=== PATIENT | male | born 1975 | race African-American/Black ===

== ENCOUNTER 2021-09-24 11:29 | Inpatient (IN) | payer OTHER ==
[2021-09-24] MEDS ORDERED: P-EPHED 60MG/TRIPROLIDI 2.5MG TABLET PO PRN (11:53)
[2021-09-24] MEDS ORDERED: MAGNESIUM HYDROX 2400MG/30ML ORAL SUSPENSION 30 ML CUP PO PRN (11:53)
[2021-09-24] MEDS ORDERED: MAG HYDROX/AL HYDROX/SIMETH 30 ML UNIT-DOSE CUP PO PRN (11:53)
[2021-09-24] MEDS ORDERED: guaiFENesin 200 MG/10 ML 10 ML UNIT-DOSE CUPS PO PRN (11:53)
[2021-09-24] MEDS ORDERED: LOPERAMIDE HCL 2 MG CAPSULE PO PRN (11:53)
[2021-09-24] MEDS ORDERED: MAGNESIUM CITRATE 300 ML BOTTLE PO PRN (11:53)
[2021-09-24] MEDS ORDERED: ACETAMINOPHEN 325 MG TABLET (FP) PO PRN (11:53)
[2021-09-24] MEDS ORDERED: IBUPROFEN 400 MG TABLET (FP) PO PRN (11:53)
[2021-09-24 12:14] VITALS: BMI 27.6
[2021-09-24] MEDS: PRENATAL VITAMINS W/ FOLIC ACID TABLET (FP) PO SCH (13:49)
[2021-09-24] MEDS: NICOTINE 7 MG/24 HOURS TOPICAL PATCH TD SCH (13:55)
[2021-09-24] MEDS ORDERED: hydrOXYzine PAMOATE 25 MG CAPSULE (FP) PO SCH (14:00)
[2021-09-24] MEDS ORDERED: PT OWN MED DRAWER 7, Y5N ONE ×3 (15:07→21:52)
[2021-09-24 16:51] LABS: HEMATOCRIT 42.1 % (35.4-49); HEMOGLOBIN 14.3 GM/dL (11.7-16.9); MCH 33.6 pg (25.7-33.7); MCHC 33.9 g/dl (32.0-35.9); MEAN CELL VOLUME 98.9 fl (80-96); MEAN PLT VOLUME 8.4 fl (7.5-11.1); PLATELET COUNT 251 10^3/uL (134-434); RBC 4.25 M/mm3 (4.00-5.60); RDW 13.8 % (11.9-15.9); WHITE BLOOD COUNT 4.4 K/mm3 (4.0-10.0)
[2021-09-24 16:57] LABS: ALBUMIN 3.2 g/dl (3.4-5.0); CALCIUM 9.6 mg/dL (8.5-10.1)
[2021-09-24 16:58] LABS: BLOOD UREA NITROGEN 5.3 mg/dL (7-18)
[2021-09-24 17:00] LABS: BILIRUBIN,TOTAL 0.4 mg/dL (0.2-1); TOT PROT 6.8 g/dl (6.4-8.2)
[2021-09-24 18:26] LABS: SYPHILIS W/ RPR CONF NON-REACTIVE (NONREACTIVE)
[2021-09-24] MEDS: hydrOXYzine PAMOATE 25 MG CAPSULE (FP) PO PRN (21:51)
[2021-09-24] MEDS: THIAMINE HCL 100 MG TABLET (FP) PO SCH (21:51)
[2021-09-24] MEDS: HALOPERIDOL 5 MG TABLET PO SCH (21:52)
[2021-09-24] MEDS: DIVALPROEX NA *ER* EXTEND REL 500 MG TABLET.SA (FP) PO SCH (21:54)
[2021-09-24] MEDS: MELATONIN 5 MG TABLETS PO SCH (21:54)
[2021-09-25] MEDS: metFORMIN HCL 500 MG TABLET (FP) PO SCH (06:58)
[2021-09-25] MEDS: ATORVASTATIN CA 80 MG TABLET (FP) PO SCH (09:30)
[2021-09-25] MEDS: ATENOLOL 25 MG TABLET (FP) PO SCH (09:30)
[2021-09-25] MEDS: PRENATAL VITAMINS W/ FOLIC ACID TABLET (FP) PO SCH (09:31)
[2021-09-25] MEDS: DIVALPROEX NA *ER* EXTEND REL 500 MG TABLET.SA (FP) PO SCH ×2 (09:31→21:52)
[2021-09-25] MEDS: NICOTINE 7 MG/24 HOURS TOPICAL PATCH TD SCH (09:32)
[2021-09-25] MEDS ORDERED: FLU VACC QS2021-22(6MOS UP)/PF 60 MCG/0.5 ML SYRINGE IM ONE (12:10)
[2021-09-25] MEDS ORDERED: PT OWN MED DRAWER 7, Y5N ONE ×2 (19:54→21:58)
[2021-09-25] MEDS: MELATONIN 5 MG TABLETS PO SCH (21:52)
[2021-09-25] MEDS: THIAMINE HCL 100 MG TABLET (FP) PO SCH (21:52)
[2021-09-25] MEDS: HALOPERIDOL 5 MG TABLET PO SCH (21:52)
[2021-09-26 00:29] LABS: URINE APPEARANCE CLEAR; URINE BILIRUBIN NEGATIVE (NEGATIVE); URINE COLOR YELLOW; URINE GLUCOSE (UA) NEGATIVE (NEGATIVE); URINE KETONE NEGATIVE (NEGATIVE); URINE LEUK ESTERASE NEGATIVE (NEGATIVE); URINE NITRITE NEGATIVE (NEGATIVE); URINE PROTEIN NEGATIVE (NEGATIVE); URINE UROBILINOGEN 0.2 mg/dL (0.2-1.0)
[2021-09-26] MEDS: metFORMIN HCL 500 MG TABLET (FP) PO SCH (06:33)
[2021-09-26] MEDS: NICOTINE 7 MG/24 HOURS TOPICAL PATCH TD SCH (09:14)
[2021-09-26] MEDS: DIVALPROEX NA *ER* EXTEND REL 500 MG TABLET.SA (FP) PO SCH ×2 (09:14→21:38)
[2021-09-26] MEDS: PRENATAL VITAMINS W/ FOLIC ACID TABLET (FP) PO SCH (09:14)
[2021-09-26] MEDS: ATORVASTATIN CA 80 MG TABLET (FP) PO SCH (09:14)
[2021-09-26] MEDS: ATENOLOL 25 MG TABLET (FP) PO SCH (09:14)
[2021-09-26] MEDS ORDERED: PT OWN MED DRAWER 7, Y5N ONE (20:22)
[2021-09-26] MEDS: HALOPERIDOL 5 MG TABLET PO SCH (21:36)
[2021-09-26] MEDS: THIAMINE HCL 100 MG TABLET (FP) PO SCH (21:36)
[2021-09-26] MEDS: MELATONIN 5 MG TABLETS PO SCH (23:27)
[2021-09-27] MEDS: metFORMIN HCL 500 MG TABLET (FP) PO SCH (06:29)
[2021-09-27] MEDS ORDERED: PT OWN MED DRAWER 7, Y5N ONE ×2 (08:32→20:03)
[2021-09-27] MEDS: PRENATAL VITAMINS W/ FOLIC ACID TABLET (FP) PO SCH (09:54)
[2021-09-27] MEDS: ATENOLOL 25 MG TABLET (FP) PO SCH (09:54)
[2021-09-27] MEDS: NICOTINE 7 MG/24 HOURS TOPICAL PATCH TD SCH (09:54)
[2021-09-27] MEDS: DIVALPROEX NA *ER* EXTEND REL 500 MG TABLET.SA (FP) PO SCH ×2 (09:54→21:31)
[2021-09-27] MEDS: ATORVASTATIN CA 80 MG TABLET (FP) PO SCH (09:54)
[2021-09-27] MEDS: THIAMINE HCL 100 MG TABLET (FP) PO SCH (21:31)
[2021-09-27] MEDS: HALOPERIDOL 5 MG TABLET PO SCH (21:31)
[2021-09-27] MEDS: MELATONIN 5 MG TABLETS PO SCH (21:32)
[2021-09-28] MEDS: metFORMIN HCL 500 MG TABLET (FP) PO SCH (06:56)
[2021-09-28] MEDS: PRENATAL VITAMINS W/ FOLIC ACID TABLET (FP) PO SCH (09:43)
[2021-09-28] MEDS: ATORVASTATIN CA 80 MG TABLET (FP) PO SCH (09:43)
[2021-09-28] MEDS: ATENOLOL 25 MG TABLET (FP) PO SCH (09:43)
[2021-09-28] MEDS: NICOTINE 7 MG/24 HOURS TOPICAL PATCH TD SCH (09:44)
[2021-09-28] MEDS: DIVALPROEX NA *ER* EXTEND REL 500 MG TABLET.SA (FP) PO SCH ×2 (09:44→22:00)
[2021-09-28] MEDS ORDERED: PT OWN MED DRAWER 7, Y5N ONE (19:39)
[2021-09-28] MEDS: THIAMINE HCL 100 MG TABLET (FP) PO SCH (22:00)
[2021-09-28] MEDS: HALOPERIDOL 5 MG TABLET PO SCH (22:00)
[2021-09-28] MEDS: MELATONIN 5 MG TABLETS PO SCH (22:00)
[2021-09-29] MEDS: metFORMIN HCL 500 MG TABLET (FP) PO SCH (06:46)
[2021-09-29] MEDS: ATORVASTATIN CA 80 MG TABLET (FP) PO SCH (10:21)
[2021-09-29] MEDS: ATENOLOL 25 MG TABLET (FP) PO SCH (10:21)
[2021-09-29] MEDS: NICOTINE 7 MG/24 HOURS TOPICAL PATCH TD SCH (10:22)
[2021-09-29] MEDS: DIVALPROEX NA *ER* EXTEND REL 500 MG TABLET.SA (FP) PO SCH ×2 (10:22→21:43)
[2021-09-29] MEDS: PRENATAL VITAMINS W/ FOLIC ACID TABLET (FP) PO SCH (10:23)
[2021-09-29] MEDS: THIAMINE HCL 100 MG TABLET (FP) PO SCH (21:43)
[2021-09-29] MEDS: HALOPERIDOL 5 MG TABLET PO SCH (21:43)
[2021-09-29] MEDS ORDERED: PT OWN MED DRAWER 7, Y5N ONE (21:47)
[2021-09-29] MEDS: MELATONIN 5 MG TABLETS PO SCH (22:30)
[2021-09-30] MEDS: metFORMIN HCL 500 MG TABLET (FP) PO SCH (07:00)
[2021-09-30] MEDS: ATENOLOL 25 MG TABLET (FP) PO SCH (09:33)
[2021-09-30] MEDS: DIVALPROEX NA *ER* EXTEND REL 500 MG TABLET.SA (FP) PO SCH ×2 (09:33→21:42)
[2021-09-30] MEDS: ATORVASTATIN CA 80 MG TABLET (FP) PO SCH (09:33)
[2021-09-30] MEDS: PRENATAL VITAMINS W/ FOLIC ACID TABLET (FP) PO SCH (09:34)
[2021-09-30] MEDS: NICOTINE 7 MG/24 HOURS TOPICAL PATCH TD SCH (09:34)
[2021-09-30] MEDS ORDERED: PT OWN MED DRAWER 7, Y5N ONE (20:31)
[2021-09-30] MEDS: THIAMINE HCL 100 MG TABLET (FP) PO SCH (21:42)
[2021-09-30] MEDS: HALOPERIDOL 5 MG TABLET PO SCH (21:42)
[2021-09-30] MEDS: MELATONIN 5 MG TABLETS PO SCH (21:42)
[2021-10-01] MEDS: metFORMIN HCL 500 MG TABLET (FP) PO SCH (06:24)
[2021-10-01] MEDS: DIVALPROEX NA *ER* EXTEND REL 500 MG TABLET.SA (FP) PO SCH ×2 (09:21→21:53)
[2021-10-01] MEDS: ATORVASTATIN CA 80 MG TABLET (FP) PO SCH (09:22)
[2021-10-01] MEDS: PRENATAL VITAMINS W/ FOLIC ACID TABLET (FP) PO SCH (09:22)
[2021-10-01] MEDS: ATENOLOL 25 MG TABLET (FP) PO SCH (09:22)
[2021-10-01] MEDS: NICOTINE 7 MG/24 HOURS TOPICAL PATCH TD SCH (09:23)
[2021-10-01] MEDS ORDERED: PT OWN MED DRAWER 7, Y5N ONE (19:10)
[2021-10-01] MEDS: hydrOXYzine PAMOATE 25 MG CAPSULE (FP) PO PRN (21:52)
[2021-10-01] MEDS: THIAMINE HCL 100 MG TABLET (FP) PO SCH (21:52)
[2021-10-01] MEDS: MELATONIN 5 MG TABLETS PO SCH (21:52)
[2021-10-01] MEDS: HALOPERIDOL 5 MG TABLET PO SCH (21:53)
[2021-10-02] MEDS: metFORMIN HCL 500 MG TABLET (FP) PO SCH (07:53)
[2021-10-02] MEDS: NICOTINE 7 MG/24 HOURS TOPICAL PATCH TD SCH (09:49)
[2021-10-02] MEDS: ATORVASTATIN CA 80 MG TABLET (FP) PO SCH (09:49)
[2021-10-02] MEDS: ATENOLOL 25 MG TABLET (FP) PO SCH (09:50)
[2021-10-02] MEDS: PRENATAL VITAMINS W/ FOLIC ACID TABLET (FP) PO SCH (09:50)
[2021-10-02] MEDS: DIVALPROEX NA *ER* EXTEND REL 500 MG TABLET.SA (FP) PO SCH ×2 (09:50→21:35)
[2021-10-02] MEDS ORDERED: PT OWN MED DRAWER 7, Y5N ONE (19:58)
[2021-10-02] MEDS: HALOPERIDOL 5 MG TABLET PO SCH (21:35)
[2021-10-02] MEDS: THIAMINE HCL 100 MG TABLET (FP) PO SCH (21:35)
[2021-10-02] MEDS: MELATONIN 5 MG TABLETS PO SCH (21:36)
[2021-10-03] MEDS: metFORMIN HCL 500 MG TABLET (FP) PO SCH (06:31)
[2021-10-03] MEDS: PRENATAL VITAMINS W/ FOLIC ACID TABLET (FP) PO SCH (09:39)
[2021-10-03] MEDS: ATORVASTATIN CA 80 MG TABLET (FP) PO SCH (09:39)
[2021-10-03] MEDS: NICOTINE 7 MG/24 HOURS TOPICAL PATCH TD SCH (09:39)
[2021-10-03] MEDS: ATENOLOL 25 MG TABLET (FP) PO SCH (09:39)
[2021-10-03] MEDS: DIVALPROEX NA *ER* EXTEND REL 500 MG TABLET.SA (FP) PO SCH ×2 (09:39→22:34)
[2021-10-03] MEDS ORDERED: PT OWN MED DRAWER 7, Y5N ONE ×2 (20:44→23:53)
[2021-10-03] MEDS: MELATONIN 5 MG TABLETS PO SCH (22:37)
[2021-10-03] MEDS: THIAMINE HCL 100 MG TABLET (FP) PO SCH (22:37)
[2021-10-03] MEDS: HALOPERIDOL 5 MG TABLET PO SCH (22:37)
[2021-10-04] MEDS: metFORMIN HCL 500 MG TABLET (FP) PO SCH (06:35)
[2021-10-04] MEDS ORDERED: PT OWN MED DRAWER 7, Y5N ONE ×2 (08:49→19:14)
[2021-10-04] MEDS: ATORVASTATIN CA 80 MG TABLET (FP) PO SCH (09:45)
[2021-10-04] MEDS: ATENOLOL 25 MG TABLET (FP) PO SCH (09:45)
[2021-10-04] MEDS: PRENATAL VITAMINS W/ FOLIC ACID TABLET (FP) PO SCH (09:45)
[2021-10-04] MEDS: NICOTINE 7 MG/24 HOURS TOPICAL PATCH TD SCH (09:45)
[2021-10-04] MEDS: DIVALPROEX NA *ER* EXTEND REL 500 MG TABLET.SA (FP) PO SCH ×2 (09:46→22:01)
[2021-10-04] MEDS: THIAMINE HCL 100 MG TABLET (FP) PO SCH (22:01)
[2021-10-04] MEDS: HALOPERIDOL 5 MG TABLET PO SCH (22:01)
[2021-10-04] MEDS: MELATONIN 5 MG TABLETS PO SCH (22:01)
[2021-10-05] MEDS: metFORMIN HCL 500 MG TABLET (FP) PO SCH (06:46)
[2021-10-05] MEDS ORDERED: PT OWN MED DRAWER 7, Y5N ONE ×2 (08:05→20:24)
[2021-10-05] MEDS: ATENOLOL 25 MG TABLET (FP) PO SCH (09:28)
[2021-10-05] MEDS: DIVALPROEX NA *ER* EXTEND REL 500 MG TABLET.SA (FP) PO SCH ×2 (09:28→21:36)
[2021-10-05] MEDS: ATORVASTATIN CA 80 MG TABLET (FP) PO SCH (09:28)
[2021-10-05] MEDS: PRENATAL VITAMINS W/ FOLIC ACID TABLET (FP) PO SCH (09:28)
[2021-10-05] MEDS: NICOTINE 7 MG/24 HOURS TOPICAL PATCH TD SCH (09:28)
[2021-10-05] MEDS: THIAMINE HCL 100 MG TABLET (FP) PO SCH (21:36)
[2021-10-05] MEDS: HALOPERIDOL 5 MG TABLET PO SCH (21:36)
[2021-10-05] MEDS: MELATONIN 5 MG TABLETS PO SCH (21:36)
[2021-10-06] MEDS: metFORMIN HCL 500 MG TABLET (FP) PO SCH (06:47)
[2021-10-06] MEDS: DIVALPROEX NA *ER* EXTEND REL 500 MG TABLET.SA (FP) PO SCH ×2 (09:12→21:32)
[2021-10-06] MEDS: ATORVASTATIN CA 80 MG TABLET (FP) PO SCH (09:12)
[2021-10-06] MEDS: ATENOLOL 25 MG TABLET (FP) PO SCH (09:12)
[2021-10-06] MEDS: PRENATAL VITAMINS W/ FOLIC ACID TABLET (FP) PO SCH (09:12)
[2021-10-06] MEDS: NICOTINE 7 MG/24 HOURS TOPICAL PATCH TD SCH (09:13)
[2021-10-06] MEDS ORDERED: PT OWN MED DRAWER 7, Y5N ONE (19:08)
[2021-10-06] MEDS: THIAMINE HCL 100 MG TABLET (FP) PO SCH (21:32)
[2021-10-06] MEDS: MELATONIN 5 MG TABLETS PO SCH (21:33)
[2021-10-06] MEDS: HALOPERIDOL 5 MG TABLET PO SCH (21:33)
[2021-10-06] MEDS: NICOTINE 10 MG CARTRIDGE (INHALER) IH PRN (21:33)
[2021-10-07] MEDS: metFORMIN HCL 500 MG TABLET (FP) PO SCH (06:46)
[2021-10-07] MEDS: ATENOLOL 25 MG TABLET (FP) PO SCH (10:08)
[2021-10-07] MEDS: ATORVASTATIN CA 80 MG TABLET (FP) PO SCH (10:08)
[2021-10-07] MEDS: DIVALPROEX NA *ER* EXTEND REL 500 MG TABLET.SA (FP) PO SCH ×2 (10:08→21:35)
[2021-10-07] MEDS: PRENATAL VITAMINS W/ FOLIC ACID TABLET (FP) PO SCH (10:09)
[2021-10-07] MEDS: NICOTINE 7 MG/24 HOURS TOPICAL PATCH TD SCH (10:09)
[2021-10-07] MEDS ORDERED: PT OWN MED DRAWER 7, Y5N ONE ×2 (10:29→19:33)
[2021-10-07] MEDS: NICOTINE 10 MG CARTRIDGE (INHALER) IH PRN (20:53)
[2021-10-07] MEDS: HALOPERIDOL 5 MG TABLET PO SCH (21:35)
[2021-10-07] MEDS: MELATONIN 5 MG TABLETS PO SCH (21:35)
[2021-10-07] MEDS: THIAMINE HCL 100 MG TABLET (FP) PO SCH (21:35)
[2021-10-08] MEDS: metFORMIN HCL 500 MG TABLET (FP) PO SCH (06:31)
[2021-10-08] MEDS ORDERED: PT OWN MED DRAWER 7, Y5N ONE ×2 (08:58→20:01)
[2021-10-08] MEDS: ATORVASTATIN CA 80 MG TABLET (FP) PO SCH (09:28)
[2021-10-08] MEDS: PRENATAL VITAMINS W/ FOLIC ACID TABLET (FP) PO SCH (09:29)
[2021-10-08] MEDS: ATENOLOL 25 MG TABLET (FP) PO SCH (09:29)
[2021-10-08] MEDS: DIVALPROEX NA *ER* EXTEND REL 500 MG TABLET.SA (FP) PO SCH ×2 (09:29→21:21)
[2021-10-08] MEDS: NICOTINE 7 MG/24 HOURS TOPICAL PATCH TD SCH (09:29)
[2021-10-08] MEDS: NICOTINE 10 MG CARTRIDGE (INHALER) IH PRN ×2 (11:27→18:45)
[2021-10-08] MEDS: THIAMINE HCL 100 MG TABLET (FP) PO SCH (21:20)
[2021-10-08] MEDS: HALOPERIDOL 5 MG TABLET PO SCH (21:20)
[2021-10-08] MEDS: MELATONIN 5 MG TABLETS PO SCH (21:22)
[2021-10-09] MEDS: metFORMIN HCL 500 MG TABLET (FP) PO SCH (06:26)
[2021-10-09] MEDS ORDERED: PT OWN MED DRAWER 7, Y5N ONE ×2 (09:23→21:26)
[2021-10-09] MEDS: ATORVASTATIN CA 80 MG TABLET (FP) PO SCH (10:43)
[2021-10-09] MEDS: ATENOLOL 25 MG TABLET (FP) PO SCH (10:43)
[2021-10-09] MEDS: DIVALPROEX NA *ER* EXTEND REL 500 MG TABLET.SA (FP) PO SCH ×2 (10:43→21:25)
[2021-10-09] MEDS: PRENATAL VITAMINS W/ FOLIC ACID TABLET (FP) PO SCH (10:44)
[2021-10-09] MEDS: NICOTINE 7 MG/24 HOURS TOPICAL PATCH TD SCH (10:44)
[2021-10-09] MEDS: NICOTINE 10 MG CARTRIDGE (INHALER) IH PRN (19:46)
[2021-10-09] MEDS: THIAMINE HCL 100 MG TABLET (FP) PO SCH (21:26)
[2021-10-09] MEDS: MELATONIN 5 MG TABLETS PO SCH (21:26)
[2021-10-09] MEDS: HALOPERIDOL 5 MG TABLET PO SCH (21:26)
[2021-10-10] MEDS: metFORMIN HCL 500 MG TABLET (FP) PO SCH (06:40)
[2021-10-10] MEDS: ATORVASTATIN CA 80 MG TABLET (FP) PO SCH (09:20)
[2021-10-10] MEDS: ATENOLOL 25 MG TABLET (FP) PO SCH (09:20)
[2021-10-10] MEDS: PRENATAL VITAMINS W/ FOLIC ACID TABLET (FP) PO SCH (09:20)
[2021-10-10] MEDS: NICOTINE 7 MG/24 HOURS TOPICAL PATCH TD SCH (09:20)
[2021-10-10] MEDS: DIVALPROEX NA *ER* EXTEND REL 500 MG TABLET.SA (FP) PO SCH ×2 (09:20→21:37)
[2021-10-10] MEDS: NICOTINE 10 MG CARTRIDGE (INHALER) IH PRN (20:32)
[2021-10-10] MEDS: THIAMINE HCL 100 MG TABLET (FP) PO SCH (21:36)
[2021-10-10] MEDS: HALOPERIDOL 5 MG TABLET PO SCH (21:36)
[2021-10-10] MEDS ORDERED: PT OWN MED DRAWER 7, Y5N ONE (21:37)
[2021-10-10] MEDS: MELATONIN 5 MG TABLETS PO SCH (21:37)
[2021-10-11] MEDS: metFORMIN HCL 500 MG TABLET (FP) PO SCH (06:32)
[2021-10-11] MEDS: DIVALPROEX NA *ER* EXTEND REL 500 MG TABLET.SA (FP) PO SCH ×2 (09:16→21:38)
[2021-10-11] MEDS: ATENOLOL 25 MG TABLET (FP) PO SCH (09:17)
[2021-10-11] MEDS: NICOTINE 7 MG/24 HOURS TOPICAL PATCH TD SCH (09:17)
[2021-10-11] MEDS: PRENATAL VITAMINS W/ FOLIC ACID TABLET (FP) PO SCH (09:17)
[2021-10-11] MEDS: ATORVASTATIN CA 80 MG TABLET (FP) PO SCH (09:17)
[2021-10-11] MEDS ORDERED: PT OWN MED DRAWER 7, Y5N ONE (19:25)
[2021-10-11] MEDS: HALOPERIDOL 5 MG TABLET PO SCH (21:37)
[2021-10-11] MEDS: THIAMINE HCL 100 MG TABLET (FP) PO SCH (21:38)
[2021-10-11] MEDS: MELATONIN 5 MG TABLETS PO SCH (21:38)
[2021-10-12] MEDS: metFORMIN HCL 500 MG TABLET (FP) PO SCH (06:22)
[2021-10-12] MEDS: PRENATAL VITAMINS W/ FOLIC ACID TABLET (FP) PO SCH (09:59)
[2021-10-12] MEDS: DIVALPROEX NA *ER* EXTEND REL 500 MG TABLET.SA (FP) PO SCH ×2 (09:59→21:20)
[2021-10-12] MEDS: NICOTINE 7 MG/24 HOURS TOPICAL PATCH TD SCH (09:59)
[2021-10-12] MEDS: ATENOLOL 25 MG TABLET (FP) PO SCH (09:59)
[2021-10-12] MEDS: ATORVASTATIN CA 80 MG TABLET (FP) PO SCH (09:59)
[2021-10-12] MEDS: NICOTINE 10 MG CARTRIDGE (INHALER) IH PRN (12:23)
[2021-10-12] MEDS ORDERED: PT OWN MED DRAWER 7, Y5N ONE (19:12)
[2021-10-12] MEDS: HALOPERIDOL 5 MG TABLET PO SCH (21:20)
[2021-10-12] MEDS: MELATONIN 5 MG TABLETS PO SCH (21:20)
[2021-10-12] MEDS: THIAMINE HCL 100 MG TABLET (FP) PO SCH (21:20)
[2021-10-13] MEDS: metFORMIN HCL 500 MG TABLET (FP) PO SCH (06:17)
[2021-10-13] MEDS: ATORVASTATIN CA 80 MG TABLET (FP) PO SCH (09:46)
[2021-10-13] MEDS: PRENATAL VITAMINS W/ FOLIC ACID TABLET (FP) PO SCH (09:46)
[2021-10-13] MEDS: NICOTINE 7 MG/24 HOURS TOPICAL PATCH TD SCH (09:46)
[2021-10-13] MEDS: DIVALPROEX NA *ER* EXTEND REL 500 MG TABLET.SA (FP) PO SCH ×2 (09:46→21:24)
[2021-10-13] MEDS: ATENOLOL 25 MG TABLET (FP) PO SCH (09:46)
[2021-10-13] MEDS ORDERED: PT OWN MED DRAWER 7, Y5N ONE ×2 (11:02→19:09)
[2021-10-13] MEDS: NICOTINE 10 MG CARTRIDGE (INHALER) IH PRN (18:06)
[2021-10-13] MEDS: THIAMINE HCL 100 MG TABLET (FP) PO SCH (21:23)
[2021-10-13] MEDS: MELATONIN 5 MG TABLETS PO SCH (21:23)
[2021-10-13] MEDS: HALOPERIDOL 5 MG TABLET PO SCH (21:23)
[2021-10-14] MEDS: metFORMIN HCL 500 MG TABLET (FP) PO SCH (06:27)
[2021-10-14] MEDS: ATORVASTATIN CA 80 MG TABLET (FP) PO SCH (09:17)
[2021-10-14] MEDS: DIVALPROEX NA *ER* EXTEND REL 500 MG TABLET.SA (FP) PO SCH ×2 (09:17→21:21)
[2021-10-14] MEDS: ATENOLOL 25 MG TABLET (FP) PO SCH (09:18)
[2021-10-14] MEDS: NICOTINE 7 MG/24 HOURS TOPICAL PATCH TD SCH (09:18)
[2021-10-14] MEDS: PRENATAL VITAMINS W/ FOLIC ACID TABLET (FP) PO SCH (09:18)
[2021-10-14] MEDS: NICOTINE 10 MG CARTRIDGE (INHALER) IH PRN ×2 (17:52→21:44)
[2021-10-14] MEDS ORDERED: PT OWN MED DRAWER 7, Y5N ONE (19:34)
[2021-10-14] MEDS: THIAMINE HCL 100 MG TABLET (FP) PO SCH (21:21)
[2021-10-14] MEDS: HALOPERIDOL 5 MG TABLET PO SCH (21:21)
[2021-10-14] MEDS: MELATONIN 5 MG TABLETS PO SCH (21:22)
[2021-10-15] MEDS: metFORMIN HCL 500 MG TABLET (FP) PO SCH (06:33)
[2021-10-15] MEDS: ATORVASTATIN CA 80 MG TABLET (FP) PO SCH (09:49)
[2021-10-15] MEDS: ATENOLOL 25 MG TABLET (FP) PO SCH (09:49)
[2021-10-15] MEDS: DIVALPROEX NA *ER* EXTEND REL 500 MG TABLET.SA (FP) PO SCH ×2 (09:49→21:24)
[2021-10-15] MEDS: PRENATAL VITAMINS W/ FOLIC ACID TABLET (FP) PO SCH (09:50)
[2021-10-15] MEDS: NICOTINE 7 MG/24 HOURS TOPICAL PATCH TD SCH (09:50)
[2021-10-15] MEDS: NICOTINE 10 MG CARTRIDGE (INHALER) IH PRN ×2 (12:19→21:25)
[2021-10-15] MEDS ORDERED: PT OWN MED DRAWER 7, Y5N ONE (20:08)
[2021-10-15] MEDS: HALOPERIDOL 5 MG TABLET PO SCH (21:23)
[2021-10-15] MEDS: THIAMINE HCL 100 MG TABLET (FP) PO SCH (21:24)
[2021-10-15] MEDS: MELATONIN 5 MG TABLETS PO SCH (22:33)
[2021-10-16] MEDS: metFORMIN HCL 500 MG TABLET (FP) PO SCH (06:18)
[2021-10-16 06:26] VITALS: BP 129/88; PULSE 77; TEMP 97.7
[2021-10-16] MEDS ORDERED: PT OWN MED DRAWER 7, Y5N ONE (08:49)
[2021-10-16] MEDS: ATENOLOL 25 MG TABLET (FP) PO SCH (09:03)
[2021-10-16] MEDS: PRENATAL VITAMINS W/ FOLIC ACID TABLET (FP) PO SCH (09:03)
[2021-10-16] MEDS: ATORVASTATIN CA 80 MG TABLET (FP) PO SCH (09:03)
[2021-10-16] MEDS: NICOTINE 7 MG/24 HOURS TOPICAL PATCH TD SCH (09:04)
[2021-10-16] MEDS: DIVALPROEX NA *ER* EXTEND REL 500 MG TABLET.SA (FP) PO SCH (09:04)
== END 2021-10-16 09:11 | disposition home or self-care (01) | DRG 772 ==
LOC: YASAS 11:29 → Y3E 12:32
PROVIDERS: ADMIT Allergy & Immunology; ATTEND Allergy & Immunology
PROC: HZ42ZZZ Group Counseling for Substance Abuse Treatment, Cognitive-Behavioral (ICD-10-PCS; principal; 2021-09-24)
DX: F14.20 Cocaine dependence, uncomplicated (principal); F17.210 Nicotine dependence, cigarettes, uncomplicated; F20.9 Schizophrenia, unspecified; I10 Essential (primary) hypertension; E78.5 Hyperlipidemia, unspecified; E11.9 Type 2 diabetes mellitus without complications; Z79.84 Long term (current) use of oral hypoglycemic drugs; Z87.828 Personal history of other (healed) physical injury and trauma
CPT/HCPCS: 36415; 80053; 80164; 81003; 82962; 85027; 86780; 86803; 87811; 93005; 93010; C9803; U0003; U0005

== ENCOUNTER 2022-08-26 12:24 | Inpatient (IN) | payer OTHER ==
[2022-08-26 12:43] VITALS: BMI 26.9
[2022-08-26] MEDS ORDERED: guaiFENesin 200 MG/10 ML 10 ML UNIT-DOSE CUPS PO PRN (13:54)
[2022-08-26] MEDS ORDERED: NICOTINE 10 MG CARTRIDGE (INHALER) IH PRN (13:54)
[2022-08-26] MEDS ORDERED: ACETAMINOPHEN 325 MG TABLET (FP) PO PRN (13:54)
[2022-08-26] MEDS ORDERED: MAG HYDROX/AL HYDROX/SIMETH 30 ML UNIT-DOSE CUP PO PRN (13:54)
[2022-08-26] MEDS ORDERED: IBUPROFEN 400 MG TABLET (FP) PO PRN (13:54)
[2022-08-26] MEDS ORDERED: MAGNESIUM CITRATE 300 ML BOTTLE PO PRN (13:54)
[2022-08-26] MEDS ORDERED: LOPERAMIDE HCL 2 MG CAPSULE PO PRN (13:54)
[2022-08-26] MEDS ORDERED: P-EPHED 60MG/TRIPROLIDI 2.5MG TABLET PO PRN (13:54)
[2022-08-26] MEDS ORDERED: MAGNESIUM HYDROX 2400MG/30ML ORAL SUSPENSION 30 ML CUP PO PRN (13:54)
[2022-08-26] MEDS ORDERED: INSULIN SLIDING SCALE (NOVOLOG) 1 VIAL SQ SCH (16:30)
[2022-08-26 18:31] LABS: CALCIUM 8.7 mg/dL (8.5-10.1)
[2022-08-26 18:32] LABS: ALBUMIN 3.5 g/dl (3.4-5.0); BLOOD UREA NITROGEN 5.2 mg/dL (7-18)
[2022-08-26 18:35] LABS: CREATININE 0.8 mg/dL (0.55-1.3)
[2022-08-26 18:37] LABS: BILIRUBIN,TOTAL 0.3 mg/dL (0.2-1)
[2022-08-26 18:39] LABS: HEMATOCRIT 43.1 % (35.4-49); HEMOGLOBIN 14.4 GM/dL (11.7-16.9); MCH 32.7 pg (25.7-33.7); MCHC 33.3 g/dl (32.0-35.9); MEAN CELL VOLUME 98.3 fl (80-96); MEAN PLT VOLUME 10.4 fl (7.5-11.1); PLATELET COUNT 215 10^3/uL (134-434); RBC 4.39 M/mm3 (4.00-5.60); RDW 13.9 % (11.9-15.9)
[2022-08-26 18:58] LABS: SYPHILIS W/ RPR CONF NON-REACTIVE (NONREACTIVE)
[2022-08-26] MEDS: NICOTINE 7 MG/24 HOURS TOPICAL PATCH TD SCH (21:53)
[2022-08-26] MEDS: THIAMINE HCL 100 MG TABLET (FP) PO SCH (21:54)
[2022-08-26] MEDS: PRENATAL VITAMINS W/ FOLIC ACID TABLET (FP) PO SCH (21:54)
[2022-08-26] MEDS: MELATONIN 5 MG TABLETS PO SCH (21:54)
[2022-08-26] MEDS: INSULIN SLIDING SCALE (NOVOLOG) 1 VIAL SQ SCH (22:58)
[2022-08-27] MEDS: INSULIN SLIDING SCALE (NOVOLOG) 1 VIAL SQ SCH ×3 (06:45→16:43)
[2022-08-27] MEDS: NICOTINE 7 MG/24 HOURS TOPICAL PATCH TD SCH (10:09)
[2022-08-27] MEDS: PRENATAL VITAMINS W/ FOLIC ACID TABLET (FP) PO SCH (10:09)
[2022-08-27] MEDS ORDERED: NICOTINE 7 MG/24 HOURS TOPICAL PATCH TD PRN (11:38)
[2022-08-27] MEDS: metFORMIN HCL 500 MG TABLET (FP) PO SCH (13:50)
[2022-08-27] MEDS: DIVALPROEX NA *ER* EXTEND REL 500 MG TABLET.SA (FP) PO SCH ×2 (13:51→21:40)
[2022-08-27] MEDS: ATENOLOL 25 MG TABLET (FP) PO SCH (13:51)
[2022-08-27] MEDS: ATORVASTATIN CA 80 MG TABLET (FP) PO SCH (13:51)
[2022-08-27] MEDS: MELATONIN 5 MG TABLETS PO SCH (21:38)
[2022-08-27] MEDS: THIAMINE HCL 100 MG TABLET (FP) PO SCH (21:38)
[2022-08-27] MEDS: hydrOXYzine PAMOATE 25 MG CAPSULE (FP) PO PRN (21:38)
[2022-08-27] MEDS: HALOPERIDOL 5 MG TABLET PO SCH (21:40)
[2022-08-27] MEDS ORDERED: BENZTROPINE MESYLATE 0.5 MG TABLET (FP) PO SCH (22:00)
[2022-08-28] MEDS: INSULIN SLIDING SCALE (NOVOLOG) 1 VIAL SQ SCH ×3 (06:57→18:30)
[2022-08-28] MEDS: metFORMIN HCL 500 MG TABLET (FP) PO SCH (06:57)
[2022-08-28] MEDS: BENZTROPINE MESYLATE 1 MG TABLET PO SCH ×2 (09:28→21:31)
[2022-08-28] MEDS: HALOPERIDOL 5 MG TABLET PO SCH ×2 (09:28→21:31)
[2022-08-28] MEDS: ATORVASTATIN CA 80 MG TABLET (FP) PO SCH (09:28)
[2022-08-28] MEDS: ATENOLOL 25 MG TABLET (FP) PO SCH (09:28)
[2022-08-28] MEDS: DIVALPROEX NA *ER* EXTEND REL 500 MG TABLET.SA (FP) PO SCH (09:28)
[2022-08-28] MEDS: PRENATAL VITAMINS W/ FOLIC ACID TABLET (FP) PO SCH (09:29)
[2022-08-28 16:16] LABS: PH,URINE 7.5 (5.0-8.0); URINE APPEARANCE CLEAR; URINE BILIRUBIN NEGATIVE (NEGATIVE); URINE COLOR YELLOW; URINE GLUCOSE (UA) NEGATIVE (NEGATIVE); URINE KETONE NEGATIVE (NEGATIVE); URINE LEUK ESTERASE NEGATIVE (NEGATIVE); URINE NITRITE NEGATIVE (NEGATIVE); URINE PROTEIN NEGATIVE (NEGATIVE); URINE UROBILINOGEN 0.2 mg/dL (0.2-1.0)
[2022-08-28] MEDS: MELATONIN 5 MG TABLETS PO SCH (21:31)
[2022-08-28] MEDS: THIAMINE HCL 100 MG TABLET (FP) PO SCH (21:31)
[2022-08-28] MEDS: DIVALPROEX SODIUM 500 MG TABLET E.C. PO SCH (21:32)
[2022-08-29] MEDS: metFORMIN HCL 500 MG TABLET (FP) PO SCH (07:21)
[2022-08-29] MEDS: INSULIN SLIDING SCALE (NOVOLOG) 1 VIAL SQ SCH ×2 (07:22→11:15)
[2022-08-29] MEDS: BENZTROPINE MESYLATE 1 MG TABLET PO SCH ×2 (10:11→21:37)
[2022-08-29] MEDS: PRENATAL VITAMINS W/ FOLIC ACID TABLET (FP) PO SCH (10:12)
[2022-08-29] MEDS: ATENOLOL 25 MG TABLET (FP) PO SCH (10:12)
[2022-08-29] MEDS: ATORVASTATIN CA 80 MG TABLET (FP) PO SCH (10:12)
[2022-08-29] MEDS: DIVALPROEX SODIUM 500 MG TABLET E.C. PO SCH ×2 (10:12→21:36)
[2022-08-29] MEDS: HALOPERIDOL 5 MG TABLET PO SCH ×2 (10:12→21:36)
[2022-08-29] MEDS: THIAMINE HCL 100 MG TABLET (FP) PO SCH (21:36)
[2022-08-29] MEDS: MELATONIN 5 MG TABLETS PO SCH (21:36)
[2022-08-30] MEDS: metFORMIN HCL 500 MG TABLET (FP) PO SCH (06:22)
[2022-08-30] MEDS: INSULIN SLIDING SCALE (NOVOLOG) 1 VIAL SQ SCH (06:22)
[2022-08-30] MEDS: ATENOLOL 25 MG TABLET (FP) PO SCH (09:24)
[2022-08-30] MEDS: BENZTROPINE MESYLATE 1 MG TABLET PO SCH ×2 (09:25→21:47)
[2022-08-30] MEDS: PRENATAL VITAMINS W/ FOLIC ACID TABLET (FP) PO SCH (09:25)
[2022-08-30] MEDS: HALOPERIDOL 5 MG TABLET PO SCH ×2 (09:25→21:49)
[2022-08-30] MEDS: DIVALPROEX SODIUM 500 MG TABLET E.C. PO SCH ×2 (09:25→21:48)
[2022-08-30] MEDS: ATORVASTATIN CA 80 MG TABLET (FP) PO SCH (09:25)
[2022-08-30] MEDS: hydrOXYzine PAMOATE 25 MG CAPSULE (FP) PO PRN (21:48)
[2022-08-30] MEDS: THIAMINE HCL 100 MG TABLET (FP) PO SCH (21:48)
[2022-08-30] MEDS: MELATONIN 5 MG TABLETS PO SCH (21:48)
[2022-08-31] MEDS: metFORMIN HCL 500 MG TABLET (FP) PO SCH (06:40)
[2022-08-31] MEDS: INSULIN SLIDING SCALE (NOVOLOG) 1 VIAL SQ SCH (06:41)
[2022-08-31] MEDS: PRENATAL VITAMINS W/ FOLIC ACID TABLET (FP) PO SCH (09:38)
[2022-08-31] MEDS: BENZTROPINE MESYLATE 1 MG TABLET PO SCH ×2 (09:39→21:11)
[2022-08-31] MEDS: DIVALPROEX SODIUM 500 MG TABLET E.C. PO SCH ×2 (09:39→21:11)
[2022-08-31] MEDS: ATENOLOL 25 MG TABLET (FP) PO SCH (09:39)
[2022-08-31] MEDS: ATORVASTATIN CA 80 MG TABLET (FP) PO SCH (09:39)
[2022-08-31] MEDS: HALOPERIDOL 5 MG TABLET PO SCH ×2 (09:39→21:11)
[2022-08-31] MEDS: THIAMINE HCL 100 MG TABLET (FP) PO SCH (21:11)
[2022-08-31] MEDS: hydrOXYzine PAMOATE 25 MG CAPSULE (FP) PO PRN (21:11)
[2022-08-31] MEDS: MELATONIN 5 MG TABLETS PO SCH (21:12)
[2022-09-01] MEDS: metFORMIN HCL 500 MG TABLET (FP) PO SCH (06:35)
[2022-09-01] MEDS: INSULIN SLIDING SCALE (NOVOLOG) 1 VIAL SQ SCH (06:36)
[2022-09-01] MEDS: ATORVASTATIN CA 80 MG TABLET (FP) PO SCH (10:01)
[2022-09-01] MEDS: ATENOLOL 25 MG TABLET (FP) PO SCH (10:01)
[2022-09-01] MEDS: PRENATAL VITAMINS W/ FOLIC ACID TABLET (FP) PO SCH (10:01)
[2022-09-01] MEDS: DIVALPROEX SODIUM 500 MG TABLET E.C. PO SCH ×2 (10:01→21:32)
[2022-09-01] MEDS: HALOPERIDOL 5 MG TABLET PO SCH ×2 (10:01→21:32)
[2022-09-01] MEDS: BENZTROPINE MESYLATE 1 MG TABLET PO SCH ×2 (10:01→22:10)
[2022-09-01] MEDS: hydrOXYzine PAMOATE 25 MG CAPSULE (FP) PO PRN (21:32)
[2022-09-01] MEDS: THIAMINE HCL 100 MG TABLET (FP) PO SCH (21:32)
[2022-09-01] MEDS: MELATONIN 5 MG TABLETS PO SCH (21:32)
[2022-09-02] MEDS: metFORMIN HCL 500 MG TABLET (FP) PO SCH (06:45)
[2022-09-02] MEDS: INSULIN SLIDING SCALE (NOVOLOG) 1 VIAL SQ SCH (06:46)
[2022-09-02] MEDS: DIVALPROEX SODIUM 500 MG TABLET E.C. PO SCH ×2 (10:01→21:29)
[2022-09-02] MEDS: HALOPERIDOL 5 MG TABLET PO SCH ×2 (10:01→21:28)
[2022-09-02] MEDS: BENZTROPINE MESYLATE 1 MG TABLET PO SCH ×2 (10:01→21:29)
[2022-09-02] MEDS: ATORVASTATIN CA 80 MG TABLET (FP) PO SCH (10:02)
[2022-09-02] MEDS: PRENATAL VITAMINS W/ FOLIC ACID TABLET (FP) PO SCH (10:02)
[2022-09-02] MEDS: ATENOLOL 25 MG TABLET (FP) PO SCH (10:02)
[2022-09-02] MEDS: MELATONIN 5 MG TABLETS PO SCH (21:28)
[2022-09-02] MEDS: THIAMINE HCL 100 MG TABLET (FP) PO SCH (21:28)
[2022-09-03] MEDS: metFORMIN HCL 500 MG TABLET (FP) PO SCH (06:35)
[2022-09-03] MEDS: INSULIN SLIDING SCALE (NOVOLOG) 1 VIAL SQ SCH (06:36)
[2022-09-03] MEDS: BENZTROPINE MESYLATE 1 MG TABLET PO SCH ×2 (09:42→21:36)
[2022-09-03] MEDS: ATORVASTATIN CA 80 MG TABLET (FP) PO SCH (09:42)
[2022-09-03] MEDS: ATENOLOL 25 MG TABLET (FP) PO SCH (09:43)
[2022-09-03] MEDS: DIVALPROEX SODIUM 500 MG TABLET E.C. PO SCH ×2 (09:43→21:37)
[2022-09-03] MEDS: PRENATAL VITAMINS W/ FOLIC ACID TABLET (FP) PO SCH (09:43)
[2022-09-03] MEDS: HALOPERIDOL 5 MG TABLET PO SCH ×2 (09:43→21:36)
[2022-09-03] MEDS: THIAMINE HCL 100 MG TABLET (FP) PO SCH (21:36)
[2022-09-03] MEDS: MELATONIN 5 MG TABLETS PO SCH (21:37)
[2022-09-04] MEDS: INSULIN SLIDING SCALE (NOVOLOG) 1 VIAL SQ SCH (06:43)
[2022-09-04] MEDS: metFORMIN HCL 500 MG TABLET (FP) PO SCH (06:43)
[2022-09-04] MEDS: BENZTROPINE MESYLATE 1 MG TABLET PO SCH ×2 (09:52→21:39)
[2022-09-04] MEDS: DIVALPROEX SODIUM 500 MG TABLET E.C. PO SCH ×2 (09:52→21:39)
[2022-09-04] MEDS: HALOPERIDOL 5 MG TABLET PO SCH ×2 (09:53→21:40)
[2022-09-04] MEDS: ATORVASTATIN CA 80 MG TABLET (FP) PO SCH (09:53)
[2022-09-04] MEDS: ATENOLOL 25 MG TABLET (FP) PO SCH (09:53)
[2022-09-04] MEDS: PRENATAL VITAMINS W/ FOLIC ACID TABLET (FP) PO SCH (09:53)
[2022-09-04] MEDS: THIAMINE HCL 100 MG TABLET (FP) PO SCH (21:40)
[2022-09-04] MEDS: MELATONIN 5 MG TABLETS PO SCH (21:40)
[2022-09-05] MEDS: metFORMIN HCL 500 MG TABLET (FP) PO SCH (07:22)
[2022-09-05] MEDS: INSULIN SLIDING SCALE (NOVOLOG) 1 VIAL SQ SCH (07:23)
[2022-09-05] MEDS: HALOPERIDOL 5 MG TABLET PO SCH ×2 (10:01→21:33)
[2022-09-05] MEDS: ATORVASTATIN CA 80 MG TABLET (FP) PO SCH (10:01)
[2022-09-05] MEDS: ATENOLOL 25 MG TABLET (FP) PO SCH (10:01)
[2022-09-05] MEDS: DIVALPROEX SODIUM 500 MG TABLET E.C. PO SCH ×2 (10:01→21:34)
[2022-09-05] MEDS: PRENATAL VITAMINS W/ FOLIC ACID TABLET (FP) PO SCH (10:02)
[2022-09-05] MEDS: BENZTROPINE MESYLATE 1 MG TABLET PO SCH ×2 (10:02→21:33)
[2022-09-05] MEDS: hydrOXYzine PAMOATE 25 MG CAPSULE (FP) PO PRN (21:33)
[2022-09-05] MEDS: MELATONIN 5 MG TABLETS PO SCH (21:34)
[2022-09-05] MEDS: THIAMINE HCL 100 MG TABLET (FP) PO SCH (21:34)
[2022-09-06] MEDS: INSULIN SLIDING SCALE (NOVOLOG) 1 VIAL SQ SCH (07:12)
[2022-09-06] MEDS: metFORMIN HCL 500 MG TABLET (FP) PO SCH (07:13)
[2022-09-06] MEDS: BENZTROPINE MESYLATE 1 MG TABLET PO SCH ×2 (09:42→21:20)
[2022-09-06] MEDS: ATENOLOL 25 MG TABLET (FP) PO SCH (09:43)
[2022-09-06] MEDS: DIVALPROEX SODIUM 500 MG TABLET E.C. PO SCH ×2 (09:43→21:19)
[2022-09-06] MEDS: PRENATAL VITAMINS W/ FOLIC ACID TABLET (FP) PO SCH (09:43)
[2022-09-06] MEDS: ATORVASTATIN CA 80 MG TABLET (FP) PO SCH (09:43)
[2022-09-06] MEDS: HALOPERIDOL 5 MG TABLET PO SCH ×2 (09:43→21:19)
[2022-09-06] MEDS: THIAMINE HCL 100 MG TABLET (FP) PO SCH (21:19)
[2022-09-06] MEDS: MELATONIN 5 MG TABLETS PO SCH (21:20)
[2022-09-07] MEDS: metFORMIN HCL 500 MG TABLET (FP) PO SCH (06:41)
[2022-09-07] MEDS: INSULIN SLIDING SCALE (NOVOLOG) 1 VIAL SQ SCH (07:05)
[2022-09-07] MEDS: BENZTROPINE MESYLATE 1 MG TABLET PO SCH ×2 (10:07→21:13)
[2022-09-07] MEDS: DIVALPROEX SODIUM 500 MG TABLET E.C. PO SCH ×2 (10:08→21:13)
[2022-09-07] MEDS: ATENOLOL 25 MG TABLET (FP) PO SCH (10:08)
[2022-09-07] MEDS: HALOPERIDOL 5 MG TABLET PO SCH ×2 (10:08→21:13)
[2022-09-07] MEDS: ATORVASTATIN CA 80 MG TABLET (FP) PO SCH (10:08)
[2022-09-07] MEDS: PRENATAL VITAMINS W/ FOLIC ACID TABLET (FP) PO SCH (10:08)
[2022-09-07] MEDS: MELATONIN 5 MG TABLETS PO SCH (21:12)
[2022-09-07] MEDS: THIAMINE HCL 100 MG TABLET (FP) PO SCH (21:12)
[2022-09-07] MEDS: hydrOXYzine PAMOATE 25 MG CAPSULE (FP) PO PRN (21:13)
[2022-09-08] MEDS: metFORMIN HCL 500 MG TABLET (FP) PO SCH (06:39)
[2022-09-08] MEDS: INSULIN SLIDING SCALE (NOVOLOG) 1 VIAL SQ SCH (06:40)
[2022-09-08] MEDS: ATENOLOL 25 MG TABLET (FP) PO SCH (09:46)
[2022-09-08] MEDS: DIVALPROEX SODIUM 500 MG TABLET E.C. PO SCH ×2 (09:46→21:17)
[2022-09-08] MEDS: PRENATAL VITAMINS W/ FOLIC ACID TABLET (FP) PO SCH (09:46)
[2022-09-08] MEDS: BENZTROPINE MESYLATE 1 MG TABLET PO SCH ×2 (09:46→21:17)
[2022-09-08] MEDS: ATORVASTATIN CA 80 MG TABLET (FP) PO SCH (09:46)
[2022-09-08] MEDS: HALOPERIDOL 5 MG TABLET PO SCH ×2 (09:46→21:17)
[2022-09-08] MEDS: THIAMINE HCL 100 MG TABLET (FP) PO SCH (21:17)
[2022-09-08] MEDS: MELATONIN 5 MG TABLETS PO SCH (21:17)
[2022-09-09] MEDS: metFORMIN HCL 500 MG TABLET (FP) PO SCH (06:34)
[2022-09-09] MEDS: INSULIN SLIDING SCALE (NOVOLOG) 1 VIAL SQ SCH (06:40)
[2022-09-09] MEDS: ATORVASTATIN CA 80 MG TABLET (FP) PO SCH (10:07)
[2022-09-09] MEDS: ATENOLOL 25 MG TABLET (FP) PO SCH (10:07)
[2022-09-09] MEDS: PRENATAL VITAMINS W/ FOLIC ACID TABLET (FP) PO SCH (10:07)
[2022-09-09] MEDS: BENZTROPINE MESYLATE 1 MG TABLET PO SCH ×2 (10:07→21:21)
[2022-09-09] MEDS: DIVALPROEX SODIUM 500 MG TABLET E.C. PO SCH ×2 (10:07→21:21)
[2022-09-09] MEDS: HALOPERIDOL 5 MG TABLET PO SCH ×2 (10:07→21:22)
[2022-09-09] MEDS: hydrOXYzine PAMOATE 25 MG CAPSULE (FP) PO PRN (21:21)
[2022-09-09] MEDS: MELATONIN 5 MG TABLETS PO SCH (21:22)
[2022-09-09] MEDS: THIAMINE HCL 100 MG TABLET (FP) PO SCH (21:22)
[2022-09-10] MEDS: metFORMIN HCL 500 MG TABLET (FP) PO SCH (06:41)
[2022-09-10] MEDS: INSULIN SLIDING SCALE (NOVOLOG) 1 VIAL SQ SCH (06:42)
[2022-09-10] MEDS: BENZTROPINE MESYLATE 1 MG TABLET PO SCH ×2 (09:37→21:31)
[2022-09-10] MEDS: ATORVASTATIN CA 80 MG TABLET (FP) PO SCH (09:38)
[2022-09-10] MEDS: HALOPERIDOL 5 MG TABLET PO SCH ×2 (09:38→21:30)
[2022-09-10] MEDS: PRENATAL VITAMINS W/ FOLIC ACID TABLET (FP) PO SCH (09:38)
[2022-09-10] MEDS: DIVALPROEX SODIUM 500 MG TABLET E.C. PO SCH ×2 (09:38→21:30)
[2022-09-10] MEDS: ATENOLOL 25 MG TABLET (FP) PO SCH (09:39)
[2022-09-10] MEDS ORDERED: HALOPERIDOL 5 MG TABLET PO PRN (15:40)
[2022-09-10] MEDS: MELATONIN 5 MG TABLETS PO SCH (21:30)
[2022-09-10] MEDS: THIAMINE HCL 100 MG TABLET (FP) PO SCH (21:30)
[2022-09-11] MEDS: metFORMIN HCL 500 MG TABLET (FP) PO SCH (06:33)
[2022-09-11] MEDS: INSULIN SLIDING SCALE (NOVOLOG) 1 VIAL SQ SCH (06:52)
[2022-09-11] MEDS: BENZTROPINE MESYLATE 1 MG TABLET PO SCH ×2 (09:47→21:24)
[2022-09-11] MEDS: DIVALPROEX SODIUM 500 MG TABLET E.C. PO SCH ×2 (09:48→21:23)
[2022-09-11] MEDS: ATORVASTATIN CA 80 MG TABLET (FP) PO SCH (09:48)
[2022-09-11] MEDS: HALOPERIDOL 5 MG TABLET PO SCH ×2 (09:48→21:23)
[2022-09-11] MEDS: PRENATAL VITAMINS W/ FOLIC ACID TABLET (FP) PO SCH (09:48)
[2022-09-11] MEDS: ATENOLOL 25 MG TABLET (FP) PO SCH (09:48)
[2022-09-11] MEDS: hydrOXYzine PAMOATE 25 MG CAPSULE (FP) PO PRN (21:23)
[2022-09-11] MEDS: THIAMINE HCL 100 MG TABLET (FP) PO SCH (21:23)
[2022-09-11] MEDS: MELATONIN 5 MG TABLETS PO SCH (21:24)
[2022-09-12] MEDS: INSULIN SLIDING SCALE (NOVOLOG) 1 VIAL SQ SCH (06:28)
[2022-09-12] MEDS: metFORMIN HCL 500 MG TABLET (FP) PO SCH (06:28)
[2022-09-12] MEDS: BENZTROPINE MESYLATE 1 MG TABLET PO SCH ×2 (09:56→21:23)
[2022-09-12] MEDS: ATORVASTATIN CA 80 MG TABLET (FP) PO SCH (09:57)
[2022-09-12] MEDS: HALOPERIDOL 5 MG TABLET PO SCH ×2 (09:57→21:23)
[2022-09-12] MEDS: ATENOLOL 25 MG TABLET (FP) PO SCH (09:57)
[2022-09-12] MEDS: DIVALPROEX SODIUM 500 MG TABLET E.C. PO SCH ×2 (09:57→21:22)
[2022-09-12] MEDS: PRENATAL VITAMINS W/ FOLIC ACID TABLET (FP) PO SCH (09:57)
[2022-09-12] MEDS: THIAMINE HCL 100 MG TABLET (FP) PO SCH (21:22)
[2022-09-12] MEDS: MELATONIN 5 MG TABLETS PO SCH (21:22)
[2022-09-12] MEDS: hydrOXYzine PAMOATE 25 MG CAPSULE (FP) PO PRN (21:22)
[2022-09-12] MEDS ORDERED: INSULIN (NOVOLOG) ASPART 100 UNITS/ML 10ML VIAL ONE (22:17)
[2022-09-13] MEDS: INSULIN SLIDING SCALE (NOVOLOG) 1 VIAL SQ SCH (06:49)
[2022-09-13] MEDS: metFORMIN HCL 500 MG TABLET (FP) PO SCH (06:49)
[2022-09-13] MEDS: ATORVASTATIN CA 80 MG TABLET (FP) PO SCH (09:37)
[2022-09-13] MEDS: PRENATAL VITAMINS W/ FOLIC ACID TABLET (FP) PO SCH (09:37)
[2022-09-13] MEDS: DIVALPROEX SODIUM 500 MG TABLET E.C. PO SCH ×2 (09:38→21:25)
[2022-09-13] MEDS: BENZTROPINE MESYLATE 1 MG TABLET PO SCH ×2 (09:38→21:25)
[2022-09-13] MEDS: ATENOLOL 25 MG TABLET (FP) PO SCH (09:38)
[2022-09-13] MEDS: HALOPERIDOL 5 MG TABLET PO SCH ×2 (09:38→21:26)
[2022-09-13] MEDS: MELATONIN 5 MG TABLETS PO SCH (21:25)
[2022-09-13] MEDS: THIAMINE HCL 100 MG TABLET (FP) PO SCH (21:26)
[2022-09-14] MEDS: INSULIN SLIDING SCALE (NOVOLOG) 1 VIAL SQ SCH (06:36)
[2022-09-14] MEDS: metFORMIN HCL 500 MG TABLET (FP) PO SCH (06:36)
[2022-09-14] MEDS: BENZTROPINE MESYLATE 1 MG TABLET PO SCH ×2 (09:59→21:42)
[2022-09-14] MEDS: DIVALPROEX SODIUM 500 MG TABLET E.C. PO SCH ×2 (09:59→21:43)
[2022-09-14] MEDS: HALOPERIDOL 5 MG TABLET PO SCH ×2 (09:59→21:44)
[2022-09-14] MEDS: ATENOLOL 25 MG TABLET (FP) PO SCH (09:59)
[2022-09-14] MEDS: ATORVASTATIN CA 80 MG TABLET (FP) PO SCH (09:59)
[2022-09-14] MEDS: PRENATAL VITAMINS W/ FOLIC ACID TABLET (FP) PO SCH (10:00)
[2022-09-14] MEDS: hydrOXYzine PAMOATE 25 MG CAPSULE (FP) PO PRN (21:43)
[2022-09-14] MEDS: MELATONIN 5 MG TABLETS PO SCH (21:44)
[2022-09-14] MEDS: THIAMINE HCL 100 MG TABLET (FP) PO SCH (21:44)
[2022-09-15] MEDS: metFORMIN HCL 500 MG TABLET (FP) PO SCH (06:48)
[2022-09-15] MEDS: INSULIN SLIDING SCALE (NOVOLOG) 1 VIAL SQ SCH (06:49)
[2022-09-15] MEDS: DIVALPROEX SODIUM 500 MG TABLET E.C. PO SCH ×2 (09:43→21:19)
[2022-09-15] MEDS: BENZTROPINE MESYLATE 1 MG TABLET PO SCH ×2 (09:43→21:20)
[2022-09-15] MEDS: ATENOLOL 25 MG TABLET (FP) PO SCH (09:44)
[2022-09-15] MEDS: ATORVASTATIN CA 80 MG TABLET (FP) PO SCH (09:44)
[2022-09-15] MEDS: PRENATAL VITAMINS W/ FOLIC ACID TABLET (FP) PO SCH (09:44)
[2022-09-15] MEDS: HALOPERIDOL 5 MG TABLET PO SCH ×2 (09:44→21:19)
[2022-09-15] MEDS: MELATONIN 5 MG TABLETS PO SCH (21:19)
[2022-09-15] MEDS: THIAMINE HCL 100 MG TABLET (FP) PO SCH (21:19)
[2022-09-16] MEDS: metFORMIN HCL 500 MG TABLET (FP) PO SCH (06:32)
[2022-09-16] MEDS: INSULIN SLIDING SCALE (NOVOLOG) 1 VIAL SQ SCH (06:33)
[2022-09-16] MEDS: DIVALPROEX SODIUM 500 MG TABLET E.C. PO SCH ×2 (09:48→21:16)
[2022-09-16] MEDS: HALOPERIDOL 5 MG TABLET PO SCH ×2 (09:48→21:15)
[2022-09-16] MEDS: BENZTROPINE MESYLATE 1 MG TABLET PO SCH ×2 (09:48→21:15)
[2022-09-16] MEDS: ATORVASTATIN CA 80 MG TABLET (FP) PO SCH (09:48)
[2022-09-16] MEDS: PRENATAL VITAMINS W/ FOLIC ACID TABLET (FP) PO SCH (09:48)
[2022-09-16] MEDS: ATENOLOL 25 MG TABLET (FP) PO SCH (09:48)
[2022-09-16] MEDS: THIAMINE HCL 100 MG TABLET (FP) PO SCH (21:16)
[2022-09-16] MEDS: MELATONIN 5 MG TABLETS PO SCH (21:16)
[2022-09-17] MEDS: metFORMIN HCL 500 MG TABLET (FP) PO SCH (06:27)
[2022-09-17] MEDS: INSULIN SLIDING SCALE (NOVOLOG) 1 VIAL SQ SCH (06:27)
[2022-09-17] MEDS: ATORVASTATIN CA 80 MG TABLET (FP) PO SCH (09:30)
[2022-09-17] MEDS: DIVALPROEX SODIUM 500 MG TABLET E.C. PO SCH ×2 (09:30→21:09)
[2022-09-17] MEDS: BENZTROPINE MESYLATE 1 MG TABLET PO SCH ×2 (09:31→21:09)
[2022-09-17] MEDS: ATENOLOL 25 MG TABLET (FP) PO SCH (09:31)
[2022-09-17] MEDS: PRENATAL VITAMINS W/ FOLIC ACID TABLET (FP) PO SCH (09:31)
[2022-09-17] MEDS: HALOPERIDOL 5 MG TABLET PO SCH ×2 (09:31→21:09)
[2022-09-17] MEDS: THIAMINE HCL 100 MG TABLET (FP) PO SCH (21:09)
[2022-09-17] MEDS: MELATONIN 5 MG TABLETS PO SCH (21:10)
[2022-09-18] MEDS: metFORMIN HCL 500 MG TABLET (FP) PO SCH (06:34)
[2022-09-18] MEDS: INSULIN SLIDING SCALE (NOVOLOG) 1 VIAL SQ SCH (06:40)
[2022-09-18] MEDS: BENZTROPINE MESYLATE 1 MG TABLET PO SCH ×2 (10:04→21:33)
[2022-09-18] MEDS: ATORVASTATIN CA 80 MG TABLET (FP) PO SCH (10:05)
[2022-09-18] MEDS: ATENOLOL 25 MG TABLET (FP) PO SCH (10:05)
[2022-09-18] MEDS: HALOPERIDOL 5 MG TABLET PO SCH ×2 (10:05→21:33)
[2022-09-18] MEDS: PRENATAL VITAMINS W/ FOLIC ACID TABLET (FP) PO SCH (10:05)
[2022-09-18] MEDS: DIVALPROEX SODIUM 500 MG TABLET E.C. PO SCH ×2 (10:05→21:34)
[2022-09-18] MEDS: THIAMINE HCL 100 MG TABLET (FP) PO SCH (21:33)
[2022-09-18] MEDS: MELATONIN 5 MG TABLETS PO SCH (21:34)
[2022-09-19] MEDS: metFORMIN HCL 500 MG TABLET (FP) PO SCH (06:22)
[2022-09-19] MEDS: INSULIN SLIDING SCALE (NOVOLOG) 1 VIAL SQ SCH (06:23)
[2022-09-19] MEDS: BENZTROPINE MESYLATE 1 MG TABLET PO SCH ×2 (09:31→21:21)
[2022-09-19] MEDS: PRENATAL VITAMINS W/ FOLIC ACID TABLET (FP) PO SCH (09:31)
[2022-09-19] MEDS: ATORVASTATIN CA 80 MG TABLET (FP) PO SCH (09:31)
[2022-09-19] MEDS: HALOPERIDOL 5 MG TABLET PO SCH ×2 (09:32→21:21)
[2022-09-19] MEDS: ATENOLOL 25 MG TABLET (FP) PO SCH (09:32)
[2022-09-19] MEDS: DIVALPROEX SODIUM 500 MG TABLET E.C. PO SCH ×2 (09:32→21:21)
[2022-09-19] MEDS: THIAMINE HCL 100 MG TABLET (FP) PO SCH (21:21)
[2022-09-19] MEDS: hydrOXYzine PAMOATE 25 MG CAPSULE (FP) PO PRN (21:21)
[2022-09-19] MEDS: MELATONIN 5 MG TABLETS PO SCH (21:22)
[2022-09-20] MEDS: metFORMIN HCL 500 MG TABLET (FP) PO SCH (06:40)
[2022-09-20] MEDS: INSULIN SLIDING SCALE (NOVOLOG) 1 VIAL SQ SCH (07:03)
[2022-09-20] MEDS: ATORVASTATIN CA 80 MG TABLET (FP) PO SCH (09:38)
[2022-09-20] MEDS: ATENOLOL 25 MG TABLET (FP) PO SCH (09:39)
[2022-09-20] MEDS: PRENATAL VITAMINS W/ FOLIC ACID TABLET (FP) PO SCH (09:39)
[2022-09-20] MEDS: HALOPERIDOL 5 MG TABLET PO SCH ×2 (09:39→21:17)
[2022-09-20] MEDS: DIVALPROEX SODIUM 500 MG TABLET E.C. PO SCH ×2 (09:39→21:17)
[2022-09-20] MEDS: BENZTROPINE MESYLATE 1 MG TABLET PO SCH ×2 (09:39→21:18)
[2022-09-20] MEDS: MELATONIN 5 MG TABLETS PO SCH (21:17)
[2022-09-20] MEDS: hydrOXYzine PAMOATE 25 MG CAPSULE (FP) PO PRN (21:17)
[2022-09-20] MEDS: THIAMINE HCL 100 MG TABLET (FP) PO SCH (21:17)
[2022-09-20] MEDS ORDERED: INSULIN (NOVOLOG) ASPART 100 UNITS/ML 10ML VIAL ONE (21:29)
[2022-09-21] MEDS: metFORMIN HCL 500 MG TABLET (FP) PO SCH (06:11)
[2022-09-21] MEDS: INSULIN SLIDING SCALE (NOVOLOG) 1 VIAL SQ SCH (06:17)
[2022-09-21] MEDS: BENZTROPINE MESYLATE 1 MG TABLET PO SCH ×2 (09:40→21:29)
[2022-09-21] MEDS: DIVALPROEX SODIUM 500 MG TABLET E.C. PO SCH ×2 (09:41→21:16)
[2022-09-21] MEDS: PRENATAL VITAMINS W/ FOLIC ACID TABLET (FP) PO SCH (09:41)
[2022-09-21] MEDS: ATENOLOL 25 MG TABLET (FP) PO SCH (09:41)
[2022-09-21] MEDS: HALOPERIDOL 5 MG TABLET PO SCH ×2 (09:41→21:17)
[2022-09-21] MEDS: ATORVASTATIN CA 80 MG TABLET (FP) PO SCH (09:41)
[2022-09-21] MEDS: hydrOXYzine PAMOATE 25 MG CAPSULE (FP) PO PRN (21:16)
[2022-09-21] MEDS: MELATONIN 5 MG TABLETS PO SCH (21:16)
[2022-09-21] MEDS: THIAMINE HCL 100 MG TABLET (FP) PO SCH (21:16)
[2022-09-22] MEDS: metFORMIN HCL 500 MG TABLET (FP) PO SCH (06:26)
[2022-09-22] MEDS: INSULIN SLIDING SCALE (NOVOLOG) 1 VIAL SQ SCH (06:27)
[2022-09-22] MEDS: ATORVASTATIN CA 80 MG TABLET (FP) PO SCH (09:50)
[2022-09-22] MEDS: PRENATAL VITAMINS W/ FOLIC ACID TABLET (FP) PO SCH (09:51)
[2022-09-22] MEDS: BENZTROPINE MESYLATE 1 MG TABLET PO SCH ×2 (09:51→21:31)
[2022-09-22] MEDS: HALOPERIDOL 5 MG TABLET PO SCH ×2 (09:51→21:31)
[2022-09-22] MEDS: ATENOLOL 25 MG TABLET (FP) PO SCH (09:52)
[2022-09-22] MEDS: DIVALPROEX SODIUM 500 MG TABLET E.C. PO SCH ×2 (09:52→21:30)
[2022-09-22] MEDS: THIAMINE HCL 100 MG TABLET (FP) PO SCH (21:30)
[2022-09-22] MEDS: hydrOXYzine PAMOATE 25 MG CAPSULE (FP) PO PRN (21:30)
[2022-09-22] MEDS: MELATONIN 5 MG TABLETS PO SCH (21:31)
[2022-09-23 06:44] VITALS: TEMP 98.1
[2022-09-23] MEDS: INSULIN SLIDING SCALE (NOVOLOG) 1 VIAL SQ SCH (07:53)
[2022-09-23] MEDS: metFORMIN HCL 500 MG TABLET (FP) PO SCH (07:53)
[2022-09-23] MEDS: BENZTROPINE MESYLATE 1 MG TABLET PO SCH (09:18)
[2022-09-23] MEDS: HALOPERIDOL 5 MG TABLET PO SCH (09:19)
[2022-09-23] MEDS: DIVALPROEX SODIUM 500 MG TABLET E.C. PO SCH (09:19)
[2022-09-23] MEDS: PRENATAL VITAMINS W/ FOLIC ACID TABLET (FP) PO SCH (09:19)
[2022-09-23] MEDS: ATENOLOL 25 MG TABLET (FP) PO SCH (09:19)
[2022-09-23] MEDS: ATORVASTATIN CA 80 MG TABLET (FP) PO SCH (09:19)
[2022-09-23 09:56] VITALS: BP 120/76; PULSE 94; RESP 17
== END 2022-09-23 09:25 | disposition home or self-care (01) | DRG 772 ==
LOC: YASAS 12:24 → Y3E 18:38
PROVIDERS: ADMIT Allergy & Immunology; ATTEND Surgery
PROC: HZ42ZZZ Group Counseling for Substance Abuse Treatment, Cognitive-Behavioral (ICD-10-PCS; principal; 2022-08-26)
DX: F10.20 Alcohol dependence, uncomplicated (principal); F14.20 Cocaine dependence, uncomplicated; F17.210 Nicotine dependence, cigarettes, uncomplicated; F20.9 Schizophrenia, unspecified; B20 Human immunodeficiency virus [HIV] disease; I10 Essential (primary) hypertension; E78.5 Hyperlipidemia, unspecified; E11.9 Type 2 diabetes mellitus without complications; Z79.84 Long term (current) use of oral hypoglycemic drugs
CPT/HCPCS: 36415; 71046-TC-FY; 80053; 80164; 81003; 82962; 85027; 86780; 86803; C9803-CS; U0003; U0005